=== PATIENT | male | born 1985 | race Caucasian/White ===

== ENCOUNTER 2016-07-22 06:28 | Emergency (ER) | payer SELFPAY ==
[~2016-07-22 06:28] MED LIST: PRED50TA PO; TRAM1TAB4 PO
[2016-07-22 06:34] VITALS: BP 131/71
--- NOTE | 2016-07-22 07:02 | PHYS DOC ---
Past Medical History Past Medical History: No Pertinent History Past Surgical History: No Surgical History Alcohol Use: Rarely Drug Use: None Adult General Chief Complaint Chief Complaint: GENERALIZED BODY ACHES HPI HPI Patient is a 30 year old male who presents with joint aches. The patient states for the past 2 weeks he has had generalized joint pain. Today the pain is worst in right hand over MCP joints, as well as in bilateral knees & ankles. He denies any trauma or new exercise, denies fevers/chills, cough, chest pain , shortness of breath, vomiting, diarrhea, dysuria, hematuria. Previous history of joint pains including visit to the emergency department for bilateral shoulder pain. States no relief with tylenol & ibuprofen at home. Does repetitive assembly line work. No known PMHx, denies IV drug use, denies recent travel, no primary care physician. Review of Systems Review of Systems Constitutional: Denies fever or chills Eyes: Denies drainage HENT: Denies nasal congestion or sore throat Respiratory: Denies cough or shortness of breath Cardiovascular: Denies chest pain GI: Denies abdominal pain, nausea, vomiting, or diarrhea : Denies dysuria or hematuria Musculoskeletal: Denies back pain, reports joint pain Integument: Denies rash or skin lesions Neurologic: Denies headache, focal weakness or sensory changes Current Medications Current Medications Current Medications Medications (Trade) Dose Ordered Sig/Lesley Start Time Stop Time Status Last Admin Dose Admin Ketorolac Tromethamine (Toradol Im) 60 mg 1X ONCE 07/22/16 07:15 07/22/16 07:16 DC 07/22/16 07:11 60 MG Allergies Allergies Allergies Coded Allergies Type Severity Reaction Last Updated Verified No Known Drug Allergies 03/10/16 No Physical Exam Physical Exam Constitutional: Well developed, well nourished, no acute distress, non-toxic appearance. HENT: Normocephalic, atraumatic, bilateral external ears normal, oropharynx moist, no tonsillar enlargement/exudate, nose normal. Eyes: conjunctiva normal, no discharge. Neck: supple, no stridor. Cardiovascular: RRR, no murmurs, no edema. Lungs & Thorax: LCTAB, no wheezing, no respiratory distress. Abdomen: soft, nontender, nondistended. Skin: Warm, dry, no erythema, no rash. Back: No tenderness. Extremities: right hand mild swelling over 2nd & 3rd MCP without erythema or warmth, minimal tenderness, no wrist tenderness, normal ROM at wrist, radial pulse 2+, radial/median/ulnar nerve sensory & motor function intact. no swelling/warmth/erythema to bilateral knees or ankles, no focal tenderness with palpation, normal ROM bilaterally to both joints, dp/pt 2+, sensation intact to foot. compartments soft to UE & LE. Neurologic: Alert and oriented X 3 Current Patient Data Vital Signs Vital Signs Date Time Temp Pulse Resp B/P Pulse Ox O2 Delivery O2 Flow Rate FiO2 07/22/16 06:34 98.2 74 20 97 Room Air 98.2 EKG EKG [] Radiology/Procedures Radiology/Procedures [] Course & Med Decision Making Course & Med Decision Making Pertinent Labs and Imaging studies reviewed. (See chart for details) Patient presents with generalized joint pains. Afebrile here. No evidence of septic arthritis. Offered screening labs but the patient states he hates needles & prefers not to have blood work today. He did receive toradol injection. Could be related to viral syndrome, recommend rest, PO hydration, tylenol/ibuprofen for pain. Provided with referral to Dr. Mora in primary care clinic, encouraged to make an appointment within about 1 week if not improving. Also may benefit from seeing Dr. Solorzano in the rheumatology clinic but could be referred by Dr. Mora. Come back for signs of septic arthritis, neurovascular compromise, or focal neuro deficit, or any otherwise worsening condition. Discharged home in stable condition. [] Dragon Disclaimer Dragon Disclaimer This electronic medical record was generated, in whole or in part, using a voice recognition dictation system. Departure Departure Impression: Primary Impression: Myalgia Additional Impression: Joint pain Disposition: HOME, SELF-CARE Condition: STABLE Referrals: NO PCP (PCP) MERCEDES SOLORZANO MD, TERRY A MD Patient Instructions: Myalgia, Adult Additional Instructions: You were seen in the emergency department today for joint pains. There is no sign of joint infection or traumatic injury. This could be related to a viral illness which may get better on its own. Try drinking plenty of water, taking tylenol or ibuprofen as needed for pain. If not improving in about a week, follow up with Dr. Mora in the primary care clinic. You might also consider seeing Dr. Solorzano in the rheumatology clinic, but it could be helpful to see primary care first. Come back for fever > 100.4, hot/red/swollen joint, numbness or weakness in arms or legs, any otherwise worsening condition. Problem Qualifiers VITALIY LANIER MD Jul 22, 2016 07:02
[2016-07-22] MEDS ORDERED: KETOROLAC TROMETHAMINE 60 MG/2 ML INJ. IM ONE (07:15)
== END 2016-07-22 07:20 | disposition home or self-care (01) ==
LOC: ER 06:28
DX: M25.541 Pain in joints of right hand (principal); M25.562 Pain in left knee; M25.561 Pain in right knee; M79.1 Myalgia
CPT/HCPCS: 96372; 99283; J1885